=== PATIENT | female | born 1960 | race Caucasian/White ===

== ENCOUNTER 2025-07-07 10:44 | Outpatient (CLI) | payer MEDICARE, SELFPAY ==
[2025-07-07 11:03] LABS: Hematocrit 39.4 % (37.0-47.0); Hemoglobin 12.6 g/dL (12.0-15.0); Immature Granulocyte Percent A 0.6 % (0-0.5); Lymphocytes Absolute Auto 1.84 K/mm3 (0.9-3.2); Mean Corpuscular HGB Conc 32.0 g/dl (32-36); Mean Corpuscular Hemoglobin 26.4 pg (26-34); Mean Corpuscular Volume 82.4 fl (80-100); Nucleated Red Blood Cells Absolute Auto 0.000 K/mm3 (0.0-0.012); Nucleated Red Blood Cells Perc 0.0 % (0.0-0.2); Platelet Count Result 388 k/mm3 (150-375); Red Blood Count 4.78 M/mm3 (4.2-5.4); White Blood Count 8.5 K/mm3 (4.5-10.0)
--- OUTSIDE RECORDS SUMMARY | 2025-07-07 11:33 | XMS_ITS | Encounter Summary ---
Author Organization [facility] Address [address] [place] [address] Care Team Providers Care Rn Nursery Name Role Phone Rama Ramos MD Primary Care Provider Reason for Referral * Laboratory Services (Routine) - Open Specialty Diagnoses / Procedures Referred By Contjose alberto t Referred To Contact Diagnoses Secondary thrombocytosis Procedures JAK2 MUTATION Reji Le MD [address] [place] [address] Phone: tel: fax: Referral ID Status Reason Start Date Expiration Date Visits Re quested Visits Authorized [id number] Open 07/07/2025 08/07/2026 1 1 Reason for Visit * Reason Comments Establish Care Encounter Details Date Type Department Care Team (Late st Contact Info) Description 07/07/2025 10:30 AM CDT Office Visit [facility] Oncology and Hematology - [place] [address] [facility] [address] [place] [address] Reji Le MD [address] [place] [address] Secondary thrombocytosis (Primary Dx); Pain of left hand Social History Tobacco Use Types Packs/Day Years Used Date Smoking Tobacco: Never Assessed Comments Unknown Sex and Gender Information Value Date Recorded Sex Assigned at Female 06/25/2025 6:17 PM CDT Legal Sex Female 11:37 AM CDT Gender Identity Female 06/25/2025 6:15 PM CDT Sexual Orientation Straight 06/25/2025 6: 15 PM CDT documented as of this encounter Last Filed Vital Signs Vital Sign Reading Time Taken Comments Blood Pressure 124/68 07/07/2025 10:12 AM CDT Pulse 86 07/07/2025 10:12 AM CDT Temperature 36.3 C (97.3 F) 07/07/2025 10:12 AM CDT Respiratory Rate - - Oxygen Saturation 96% 07/07/2025 10: 12 AM CDT Inhaled Oxygen Concentration - - Weight 121.9 kg (268 lb 12.8 oz) 2024 10:12 AM CDT Height 165.1 cm (5' 5) 07/07/2025 10:1 2 AM CDT Body Mass Index 44.73 07/07/2025 10:12 AM CDT documented in this encounter Progress Notes * Reji Le MD - 07/07/2025 10:16 AM CDT Hematology-oncology consult Note Requesting Physician Rama Ramos MD Primary Care Physician Rama Ramos MD Problem list Patient Active Problem List Diagnosis Code Abnormal laboratory test result R89.9 Acute urinary tract infection N39.0 Anemia D64.9 Anxiety F41.9 Basal cell carcinoma of skin C44.91 Candidiasis of skin B37.2 Changing skin lesion L98.9 Chronic depression F32.A COVID-19 U07.1 Diabetes mellitus (CMS/HCC) E11.9 Type 2 diabetes mellitus without complication (CMS/HCC) E11.9 Well controlled type 2 diabetes mellitus (CMS/HCC) E11.9 Essential hypertension I10 Gastroesophageal reflux disease without esophagitis K21.9 Generalized anxiety disorder F41.1 Heart murmur R01.1 Hypercalcemia E83.52 Hyperlipidemia E78.5 Hyperkalemia E87.5 Hypokalemia E87.6 Iron deficiency anemia D50.9 Low serum vitamin B12 E53.8 Neuropathy G62.9 Obesity E66.9 Obstructive sleep apnea syndrome G47.33 Osteoarthrosis M19.90 Pain in throat R07.0 Parotitis K11.20 Thrombocythemia D75.839 Upper respiratory infection J06.9 Vitamin B12 deficiency (non anemic) E53.8 Vitamin D deficiency E55.9 Previous TREATMENT ? Measurable Disease ? Reason for Visit Samia Rosales is a 65 y.o. female who was referred for consultation for thrombocytosis. History of present illness This is a 65-year-old obese female with history of type 2 diabetes, hypertension and basal cell carcinoma of the skin referred to me for thrombocytosis. She has been dealing with left thumband palm region discomfort for last 2 years duration. She denies any bleeding including melena and h ematochezia. She denies being a smoker. She has bilateral knee surgery done in the past. Her labs from August 2024 showed slightly elevated platelet count of 405,000. She has been taking baby aspirin once a day. She is under stress and grief as her just about a month ago. Denies any other new complaints. Past Medical History No past medical history on file. Type 2 diabetes hypertension Hypertension Surgical History No past surgical history on file. Hysterectomy 1996. Surgery for basal cell carcinoma of the skin on the right upper extremity. Medications Current Outpatient Medications Medication Sig Dispense Refill cholecalciferol 1,250 mcg (50,000 unit) Capsule Take 1 capsule every week by oral route for 90 days. amoxicillin (AMOXIL) 500 mg capsule TK 1 C PO TID FOR 7 DAYS aspirin (SANTOS) 81 mg Tablet Take 81 mg by mouth daily. econazole nitrate (SPECTAZOLE) 1 % Cream LELO EXT AA BID FOR 14 DAYS ferrous sulfate 325 mg (65 mg iron) tablet Take 1 Tablet by mouth daily. fluticasone propionate (FLONASE) 50 mcg/spray [place], Suspension nasal inhaler Allen 2 sprays every day by intranasal route. glimepiride (AMARYL) 4 mg tablet Take 4 mg by mouth 2 times daily. hydrOXYzine HCL (ATARAX) 10 mg tablet TK 1 T PO TID PRN Tresiba FlexTouch U-200 200 unit/mL (3 mL) pen syringe INJECT 50 UNITS UNDER THE SKIN EVERY DAY losartan (COZAAR) 100 mg tablet Take 100 mg by mouth daily. No current facility-administered medications for this visit. Allergies Allergies Allergen Reactions Sulfa (Sulfonamide Antibiotics) Unknown Rahul Inhibitors Cough Immunizations: There is no immunization history on file for this patient. Family History No family history on file. Social History Social History Tobacco Use Smoking status: Not on file Smokeless tobacco: Not on file Substance Use Topics Alcohol use: Not on file Review of Systems Constitutional: Patient did not mention fever; no night sweats; no anorexia; no weight loss; no fatique NEENT: Patient did not mention headache; no change in vision; no change in hearing; no sore throat;no dysphagia Respiratory: Patient did not mention shortness of breath; no pleuritic chest pain; no cough; no hemoptysis Cardiac: Patient did not mention cardiac-like chest pain; no palpitations; no orthopnea; no PND; noDOE Breasts: Patient did not mention tenderness; no masses GI: Patient did not mention abdominal pain; no nausea; no vomiting; no diarrhea; no hematochezia; no melena : Patient did not mention dysuria; no frequency; no hesitancy; no hematuria PCA: Musculosketetal: Patient did not mention bone pain; complain of left thumb arthralgia Skin: Patient did not mention pruritis; no rash; no petechiae; no ecchymoses Endocrine: Patient did not mention polydipsia; no polyuria; no unusual weight gain Neuro: Patient did not mention headache; no change in vision; no sensory changes; no muscle weakness; no confusion; no seizures Psych: Patient did not mention anxiety; no depression; Physical Exam Vitals: As per nursing note Constitutional: Well developed, well nourished, no acute distress, non-toxic appearance Teeth and gum. No signs of infection or swelling. Eyes: PERRL, conjunctiva normal HEENT: Atraumatic, external ears normal, nose normal, oropharynx moist, no pharyngeal exudates. no sinus tenderness Neck- normal range of motion, no tenderness, supple Respiratory: No respiratory distress, normal breath sounds, no rales, no wheezing Cardiovascular: Normal rate, normal rhythm, no murmurs, no gallops, no rubs GI: Soft, nondistended, normal bowel sounds, nontender, no splenomegaly, no hepatomegaly, no mass, no rebound, no guarding : No costovertebral angle tenderness Musculoskeletal: No edema, no tenderness, no deformities. Back- no tenderness Integument: Well hydrated, no rash, Digits and nails inspection normal Lymphatic: No lymphadenopathy noted Neurologic: Alert & oriented x 3, CN 2-12 normal, normal motor function, normal sensory function, no focal deficits noted Psychiatric: Speech and behavior appropriate ? labs No results found for this or any previous visit (from the past 24 hours). Labs from August 2024 showed WBC 9.6 hemoglobin 12.8 MCV 85.2 platelet 405,000 neutrophils 62% lymphocyte 20% Pathology ? Imaging & Other Studies Performance Status? Assessment / Plan: ? Thrombocytosis. Patient is a pleasant 65-year-old obese female who has been in good health except history of type 2 diabetes, hypertension and history of basal cell carcinoma of the right upper extremity. She denies any history of thromboembolic events including stroke and heart attack. She is taking baby aspirin once a day. She has been complaining of the left thumb discomfort and arthralgia for the last 2 years duration. I have reviewed the labs with the patient that showed slightlyelevated platelet count of 405,000. This is likely reactive thrombocytosis secondary to the left thumb arthralgia and discomfort. I will order the workup that will include CBC with differential, CMP,C-reactive protein, ferritin level, JAK2 mutation level and CMP. She will continue baby aspirin. I have discussed the complication of thrombocytosis in detail. We also discussed the role of hydroxyurea if the platelet count go over 600,000 to reduce risk of thromboembolic events. I have answered all the questions to patient's satisfaction. Left thumb arthralgia. Will order the left hand x-ray since it has been going on for more than 2 years duration. Type 2 diabetes. Patient is on Amaryl. Hypertension. Patient is on losartan. Thank you very much for allowing me to participate in Samia Rosales's evaluation and management. Please feel free to contact if I can be of any further assistance in your patient???s care requiring hematology or oncology evaluation. Sincerely, ? ? Reji Le M.D. cell TOBACCO COUNSELING She is not a tobacco/nicotine user. Reji Le MD ,07/07/2025 10:48 AM ? Total time spent 60 minutes, two third of the total time spent counseling patient [id number]. CC:?Rama Ramos MD documented in this encounter Plan of Treatment Upcoming Encounters Date Type Department Care Team (Late st Contact Info) Description 07/21/2025 4:35 PM CDT Telephone Check Up [facility] Oncology and Hematology - [place] [address] [facility] [address] [place] [address] Reji Le MD [address] [facility] [address] [place] [address] Scheduled Orders Name Type Priority Associated Diagnoses Orde r Schedule CBC WITH DIFFERENTIAL Lab Stat Secondary thrombocytosis Expected: 07/07/2025, Expires: 07/07/2026 COMPREHENSIVE METABOLIC PANEL Lab Stat Secondary thrombocytosis Expected: 07/07/2025, Expires: 07/07/2026 JAK2 MUTATION Lab Routine Secondary thrombocytosis Expected: 07/07/2025, Expires: 07/07/2026 C-REACTIVE PROTEIN Lab Routine Secondary thrombocytosis Expected: 07/07/2025, Expires: 07/07/2026 FERRITIN Lab Routine Secondary thrombocytosis Expected: 07/07/2025, Expires: 07/07/2026 XR HAND 2 VW LEFT Imaging Routine Pain of left hand 1 Occurrences starting 07/07/2025 until 07/07/2026 documented as of this encounter Visit Diagnoses Diagnosis Secondary thrombocytosis- Primary Essential thrombocythemia Pain of left hand Pain in limb documented in this encounter Care Teams Rn Nursery Relationship Specialty Start Date End Date Rama Ramos MD [address] [place] [address] PCP - General Internal Medicine 04/01/25 documented as of this encounter
--- OUTSIDE RECORDS SUMMARY | 2025-07-07 11:33 | XMS_ITS | Clinical Summary ---
Author Organization [facility] Laya Mendoza Address [address] [place] [address] Care Team Providers Care Signal Inspector Name Role Phone Rama Ramos MD Primary Care Provider Allergies Active Allergy Reactions Criticality Noted Date Comments Rahul Inhibitors Cough Low 07/07/2025 Sulfa (Sulfonamide Antibiotics) Unknown 06/26 Medications amoxicillin (AMOXIL) 500 mg capsule TK 1 C PO TID FOR 7 DAYS Active aspirin (SANTOS) 81 mg Tablet Take 81 mg by mouth daily. Active cholecalciferol 1,250 mcg (50,000 unit) Capsule Take 1 capsule every week by oral route for 90 days. 4 Active econazole nitrate (SPECTAZOLE) 1 % Cream LELO EXT AA BID FOR 14 DAYS Active ferrous sulfate 325 mg (65 mg iron) tablet Take 1 Tablet by mouth daily. Active fluticasone propionate (FLONASE) 50 mcg/spray [place], Suspension nasal inhaler [place] 2 sprays every day by intranasal route. Active glimepiride (AMARYL) 4 mg tablet Take 4 mg by mouth 2 times daily. Active hydrOXYzine HCL (ATARAX) 10 mg tablet TK 1 T PO TID PRN Active Tresiba FlexTouch U-200 200 unit/mL (3 mL) pen syringe INJECT 50 UNITS UNDER THE SKIN EVERY DAY Active losartan (COZAAR) 100 mg tablet Take 100 mg by mouth daily. Active Active Problems Problem Noted Date Diagnosed Date Anxiety 07/07/2025 Chronic depression 07/07/2025 Type 2 diabetes mellitus without complication Essential hypertension 07/07/2025 Hypokalemia 07/07/2025 Neuropathy 07/07/2025 Osteoarthrosis 07/07/2025 Parotitis 07/07/2025 Hyperkalemia 04/06/2025 Obstructive sleep apnea syndrome 04/06/2025 Abnormal laboratory test result 03/07/2024 Heart murmur 02/14/2024 Low serum vitamin B12 02/14/2024 Obesity 02/14/2024 Hypercalcemia 01/16/2024 COVID-19 11/22/2023 Upper respiratory infection 10/22/2023 Pain in throat 03/19/2023 Thrombocythemia 02/15/2023 Basal cell carcinoma of skin 02/13/2023 Candidiasis of skin 02/13/2023 Anemia 02/12/2023 Changing skin lesion 02/12/2023 Well controlled type 2 diabetes mellitus 023 Gastroesophageal reflux disease without esophagi tis 02/12/2023 Generalized anxiety disorder 02/12/2023 Hyperlipidemia 02/12/2023 Vitamin B12 deficiency (non anemic) 02/12/2023 Vitamin D deficiency 02/12/2023 Iron deficiency anemia 06/19/2022 Acute urinary tract infection 02/06/2022 Diabetes mellitus 04/12/2021 Encounters Date Type Department Care Team Description 07/07/2025 10:30 AM CDT Office Visit [facility] Oncology and Hematology - [place] [address] [address] Reji Le MD Secondary thrombocytosis (Primary Dx); Pain of left hand from Last 3 Months Social History Tobacco Use Types Packs/Day Years Used Date Smoking Tobacco: Never Assessed Comments Unknown Sex and Gender Information Value Date Recorded Sex Assigned at Female 06/25/2025 6:17 PM CDT Legal Sex Female 11:37 AM CDT Gender Identity Female 06/25/2025 6:15 PM CDT Sexual Orientation Straight 06/25/2025 6: 15 PM CDT Last Filed Vital Signs Vital Sign Reading [...] Mass Index 44.73 07/07/2025 10:12 AM CDT Plan of Treatment Upcoming Encounters Date Type Department Care Team (Late st Contact Info) Description 07/21/2025 4:35 PM CDT Telephone Check Up [facility] Oncology and Hematology - [place] [address] [facility] [address] [place] [address] Reji Le MD [address] [facility] [address] [place] [address] Health Maintenance Due Date Last Done Comments DIABETES ANNUAL FOOT EXAM 1978 DIABETES ANNUAL RETINAL EXAM 1978 DIABETES HBA1C Q 6 MONTHS 1978 08/29/2024 DIABETES MICROALBUMIN ANNUAL SCREEN 1978 LDL CHOLESTEROL ANNUAL 1978 Traditional Medicare (ACO) A nnual Wellness Visit 1979 BREAST CANCER SCREENING 2000 COLORECTAL SCREENING 2005 Colorectal Cancer Screening 2005 FIT-DNA Q 3 years 2005 FIT/FOBT Q 1 year 2005 Flex Sig/CT Colonography Q 5 years 2005 ZOSTER VACCINE (1 of 2) 2010 PNEUMOCOCCAL VACCINE 50+ YEA RS (2 of 2 - PCV) 03/30/2010 03/30/2009 RSV VACCINE (60+ or ) (1 - Risk 60-74 years 1-dose series) 2020 OSTEOPOROSIS SCREENING 2025 INFLUENZA VACCINE (#1) 2025 9, 09/05/2017, 10/07/2015, Additional history exists DTAP/TDAP/TD VACCINES (2 - T d or Tdap) 06/23/2032 06/23/2022 Insurance [employer] [facility] MEDICARE PART A AND B Care Teams Signal Inspector Relationship Specialty Start Date End Date Rama Ramos MD [address] [place] [address] [address] [place] [address] PCP - General Internal Medicine 04/01/25
--- OUTSIDE RECORDS SUMMARY | 2025-07-07 11:33 | XMS_ITS ---
Author Organization [facility] Address [address] [address] [place] [address] Care Team Providers Care Statement Services Representative Name Role Phone SOLOKAYLAANAMARIAPATRICIO Randle Unavailable [phone] Casey Jones Unavailable [phone] Problems Problem Type SNOMED Code ICD Code Onset Dates Problem Status W/U Status Risk Notes Problem Chronic kidney disease stage 2 (817048181) Chronic kidney disease, stage 2 (mild) (N18.2) Active confirmed Problem Hyperkalemia (33906958) Hyperkalemia (E87.5) Active confirmed Problem Essential hypertension (40540859) Essential hypertension (I10) Active confirmed Problem Diabetic renal disease (579337996) Type 2 diabetes mellitus with diabetic chronic kidney disease (E11.22) Active confirmed Problem Anxiety disorder (799636157) Anxiety disorder, unspecified (F41.9) Active confirmed Problem Anemia (043694317) Anemia, unspecified (D64.9) Active confirmed Problem Obesity (478426280) Obesity, unspecified (E66.9) Active confirmed Problem Hyperlipidemia (84574341) Hyperlipidemia, unspecified (E78.5) Active confirmed Encounters Encounter Location Date Provider Diagnosis [facility] [address] [facility] [address] [place] [address] 06/26/2025 Casey Jones Chronic kidney disease, stage 2 (mild) N18.2 ; Hyperkalemia E87.5 ; Essential hypertension I10 ; Type 2 diabetes mellitus with diabetic chronic kidney disease E11.22 ; Anxiety disorder, unspecified F41.9 ; Anemia, unspecified D64.9 ; Obesity, unspecified E66.9 and Hyperlipidemia, unspecified E78.5 Assessments Encounter Date Diagnosis (ICD Code) Assessment Notes Treatment Notes Treatment Clinical Notes Section Notes 06/26/2025 Chronic kidney disease, stage 2 (mild) (ICD-10 - N18.2) 06/26/2025 Hyperkalemia (ICD-10 - E87.5) 06/26/2025 Essential hypertension (ICD-10 - I10) 06/26/2025 Type 2 diabetes mellitus with diabetic chronic kidney disease (ICD-10 - E11.22) 06/26/2025 Anxiety disorder, unspecified (ICD-10 - F41.9) 06/26/2025 Anemia, unspecified (ICD-10 - D64.9) 06/26/2025 Obesity, unspecified (ICD-10 - E66.9) 06/26/2025 Hyperlipidemia, unspecified (ICD-10 - E78.5) Plan Of Treatment Next Appt Details Provider Name:Casey Robert , 07/24/2025 01:15:00 PM, [address] [facility], [place] [address], [place], [facility], Progress Notes * PREETI Samia CarrDOB: 0 (65 yo F)Acc No.[id number]:06/26/2025 Progress Notes Patient: Samia NEGRO Provider: Harpreet CARY MD, F.A.C.P, F.A.S.N. :1960 A ge:65 Y S ex:Female Date:06/26/2025 Address:[address] [place] [address] Subjective: * Chief Complaints: * * Medical History: Objective: * Vitals: Assessment: * Assessment: 1. C hronic kidney disease, stage 2 (mild) - N18.2 (Primary) 2 . H yperkalemia - E87.5 3 . E ssential hypertension - I10 4 . T ype 2 diabetes mellitus with diabetic chronic kidney disease - E11.22 5 . A nxiety disorder, unspecified - F41.9 6 . A nemia, unspecified - D64.9 7 .?Obesity, unspecified - E66.9 8 . H yperlipidemia, unspecified - E78.5 ? Plan: * Treatment: * Billing Information: * Visit Code: 73279 Office Visit, New Pt., Level 5. * Procedure Codes: * Electronic signature of Scott Jones MD on 07/07/2025 at 11:33 AM CDT Sign off status: Pending * Provider: Harpreet CARY MD, F.A.C.P, F.A.S.N. Date: 06/26/2025 Generated for Printing/Faxing/eTransmitting on: 07/07/2025 11:33 AM CDT
--- OUTSIDE RECORDS SUMMARY | 2025-07-07 11:33 | XMS_ITS | Patient Health Record ---
Author Organization [facility] Address [address] [place] [address] Care Team Providers Care Software Development Analyst Name Role Phone PATRICIO SHAVER Unavailable [phone] Casey Jones Unavailable [phone] Reason For Referral No Information Problems Problem Type SNOMED Code ICD Code Onset Dates Problem Status W/U Status Risk Notes Problem Anemia (294898978) Anemia, unspecified (D64.9) Active confirmed Problem Diabetic renal disease (165323946) Type 2 diabetes mellitus with diabetic chronic kidney disease (E11.22) Active confirmed Problem Obesity (948196316) Obesity, unspecified (E66.9) Active confirmed Problem Hyperlipidemia (64977475) Hyperlipidemia, unspecified (E78.5) Active confirmed Problem Hyperkalemia (47745032) Hyperkalemia (E87.5) Active confirmed Problem Anxiety disorder (571024431) Anxiety disorder, unspecified (F41.9) Active confirmed Problem Chronic kidney disease stage 2 (932013017) Chronic kidney disease, stage 2 (mild) (N18.2) Active confirmed Problem Essential hypertension (77257823) Essential hypertension (I10) Active confirmed Encounters Encounter Location Date Provider Diagnosis [facility] [address] [facility] [address] [place] [address] 06/26/2025 Casey Jones Chronic kidney disease, stage [...] Of Treatment Next Appt Details Provider Name:Casey Jones , 07/24/2025 01:15:00 PM, [address] [facility], [facility] [address], [place], [address],
[2025-07-07 13:28] LABS: Alanine Aminotransferase 22 U/L (6-35); Albumin Level 4.4 g/dL (3.5-5.1); Alkaline Phosphatase 115 U/L (38-126); Anion Gap 11 mmol/L (4-12); Aspartate Amino Transferase 59 U/L (14-36); Bilirubin,Total 0.3 mg/dL (0.2-1.3); Blood Urea Nitrogen 16 mg/dL (7-17); CRP 2.2 mg/dL (<1.0); Calcium 9.8 mg/dL (8.4-10.2); Carbon Dioxide 25 mmol/L (22-30); Chloride 99 mmol/L (98-107); Estimated Glomerular Filt Rate > 60; Glucose 226 mg/dL (65-110); Potassium 5.2 mmol/L (3.4-5.0); Sodium 135 mmol/L (137-145); Total Protein 8.4 g/dL (6.3-8.2)
[2025-07-07 14:01] LABS: Ferritin 31.00 ng/mL (11.1-264)
[2025-07-22 12:25] LABS: CALR + MPL + E12-E15 YES YES
== END 2025-07-07 10:45 | disposition home or self-care (01) ==
PROVIDERS: PCP Internal Medicine; Visit Provider Internal Medicine Hematology & Oncology
DX: D75.838 Other thrombocytosis (principal); D69.9 Hemorrhagic condition, unspecified; D45 Polycythemia vera
CPT/HCPCS: 36415; 73120; 80053; 81219; 81270; 82728; 85025; 86140

== ENCOUNTER 2025-07-07 11:14 | Outpatient (CLI) | payer MEDICARE, SELFPAY ==
--- NOTE | ~2025-07-07 | XR_ITS ---
Exam: Left hand x-ray 2 views Clinical history: Non trauma proximal thumb pain TECHNIQUE: 2 images of the left hand were obtained. Comparisons: None. FINDINGS: Bones appear osteopenic. No fracture. No dislocation. Mild joint space narrowing in the interphalangeal joints of all 5 digits including the MCP joints. Moderate to severe degenerative change in the first metacarpophalangeal joint with adjacent soft tiss ue swelling. IMPRESSION: 1. No acute fracture. 2. Moderate to severe degenerative change in the first metacarpophalangeal joint with adjacent soft t issue swelling. Reviewed, dictated and finalized at location A. IMPRESSION: 1. No acute fracture. 2. Moderate to severe degenerative change in the first metacarpophalangeal join t with adjacent soft tissue swelling.
--- OUTSIDE RECORDS SUMMARY | 2025-07-07 12:07 | XMS_ITS | Encounter Summary ---
Author Organization [facility] Address [address] [place] [address] Care Team Providers Care Science Technician Name Role Phone Rama Ramos MD Primary Care Provider Reason for Referral * Laboratory Services (Routine) - Open Specialty Diagnoses / Procedures Referred By Contjose alberto t Referred To Contact Diagnoses Secondary thrombocytosis Procedures JAK2 MUTATION Reji Le MD [address] [place] [address] Phone: tel: fax: Referral ID Status Reason Start Date Expiration Date Visits Re quested Visits Authorized [id number] Open 07/07/2025 08/07/2026 1 1 Reason for Visit * Reason Comments Establish Care Encounter Details Date Type Department Care Team (Late st Contact Info) Description 07/07/2025 10:30 AM CDT Office Visit [facility] Oncology and Hematology - [place] [address] [facility] [address] [place] [address] Reji Le MD [address] [place] [address] Secondary thrombocytosis (Primary Dx); Pain [...] mouth daily. fluticasone propionate (FLONASE) 50 mcg/spray [place], Suspension nasal inhaler [place] 2 sprays every day by intranasal route. [...] dysuria; no frequency; no hesitancy; no hematuria LAMINATION MACHINE OPERATOR: Musculosketetal: Patient did not mention bone pain; [...] of the total time spent counseling patient [id number]. CC:?Rama Ramos MD documented in this encounter Plan of Treatment Upcoming Encounters Date Type Department Care Team (Late st Contact Info) Description 07/21/2025 4:35 PM CDT Telephone Check Up [facility] Oncology and Hematology - [place] [address] [facility] [address] [place] [address] Reji Le MD [address] [facility] [address] [place] [address] Scheduled Orders Name Type Priority [...] limb documented in this encounter Care Teams Science Technician Relationship Specialty Start Date End Date Rama Ramos MD [address] [place] [address] PCP - General Internal Medicine 04/01/25 documented as of this encounter
--- OUTSIDE RECORDS SUMMARY | 2025-07-07 12:07 | XMS_ITS | Clinical Summary ---
Author Organization [facility] Laya Mendoza Address [address] [place] [address] Care Team Providers Care Drying Supervisor Name Role Phone Rama Ramos MD Primary [...] daily. Active fluticasone propionate (FLONASE) 50 mcg/spray [place], Suspension nasal inhaler [place] 2 sprays every day by intranasal route. [...] Description 07/07/2025 10:30 AM CDT Office Visit [facility] - [place] [address] [address] Reji Le MD Secondary thrombocytosis [...] 07/21/2025 4:35 PM CDT Telephone Check Up [facility] - [place] [address] [facility] [address] [place] [address] Reji Le MD [address] [facility] [address] [place] [address] Health Maintenance Due Date Last [...] T d or Tdap) 06/23/2032 06/23/2022 Insurance Parchment [facility] MEDICARE PART A AND B Care Teams Drying Supervisor Relationship Specialty Start Date End Date Rama Ramos MD [address] [place] [address] Dr Franks [address] [place] [phone] PCP - General Internal Medicine 04/01/25
== END 2025-07-07 11:15 | disposition home or self-care (01) ==
PROVIDERS: PCP Internal Medicine; Visit Provider Internal Medicine Hematology & Oncology
DX: M19.042 Primary osteoarthritis, left hand (principal)
CPT/HCPCS: 73120